=== PATIENT | male | born 1985 | race Caucasian/White ===

== ENCOUNTER 2018-11-01 08:55 | Emergency (ER) | payer OTHER ==
[2018-11-01] MEDS: ACETAMINOPHEN 500 MG TAB PO (10:47)
[2018-11-01] MEDS: IBUPROFEN 800 MG TAB PO (10:47)
== END 2018-11-01 11:44 | disposition home or self-care (01) ==
LOC: FTE 08:55
DX: J11.1 Influenza due to unidentified influenza virus with other respiratory manifestations (principal)
CPT/HCPCS: 87400; 87880; 99283